=== PATIENT | female | born 1955 | race Caucasian/White ===

== ENCOUNTER 2016-10-12 12:05 | Emergency (ER) | payer OTHER ==
[2016-10-12 12:09] VITALS: TEMP 98.6; BMI 25.0
[2016-10-12] MEDS ORDERED: ONDANSETRON 4 MG/2 ML VIAL IVPUSH ONE (13:11)
[2016-10-12] MEDS ORDERED: SODIUM CHLORIDE 1,000 ML IV STA (13:11)
--- NOTE | 2016-10-12 13:11 | PDOC ---
History of Present Illness - General Chief Complaint: Pain, Acute Stated Complaint: ABD PAIN, NAUSEA Time Seen by Provider: 10/12/16 12:51 History Source: Patient Exam Limitations: No Limitations - History of Present Illness Initial Comments: 61 yo F history IBS, hypothyroid, depression presents with abd pain, N/V/D x4 days. She denies fever, dysuria. She has not had similar symptoms in the past. She states that the pain is diffuse, colicky, moderate. GI Dr. Mcclure Past History - Past Medical History Allergies/Adverse Reactions: Allergies Allergy/AdvReac Type Severity Reaction Status Date / Time No Known Allergies Allergy Verified 10/12/16 12:06 Home Medications: Ambulatory Orders Esomeprazole Magnesium [Nexium 24Hr] 40 mg PO DAILY 02/12/16 Mag Hydrox/Al Hydrox/Simeth [Mylanta Suspension -] 30 ml PO Q6H #1 bottle Escitalopram Oxalate [Lexapro -] 10 mg PO DAILY 10/12/16 Levothyroxine Sodium [Synthroid] 88 mcg PO 10/12/16 Ondansetron [Zofran Odt -] 4 mg SL TID PRN #21 od.tablet 10/12/16 GI Disorders: Yes Psychiatric Problems: Yes (DEPRESSION) Seizures: Yes Thyroid Disease: Yes - Psycho/Social/Smoking Cessation Hx Anxiety: No Suicidal Ideation: No Smoking History: Never smoked Have you smoked in the past 12 months: No Information on smoking cessation initiated: No Hx Alcohol Use: No Drug/Substance Use Hx: No Substance Use Type: None Review of Systems - Review of Systems Able to Perform ROS?: Yes Comments:: GENERAL/CONSTITUTIONAL: No fever or chills. No weakness. HEAD, EYES, EARS, NOSE AND THROAT: No change in vision. No ear pain or discharge. No sore throat. CARDIOVASCULAR: No chest pain or shortness of breath. RESPIRATORY: No cough, wheezing, or hemoptysis. GASTROINTESTINAL: +Nausea, vomiting, diarrhea. No constipation. GENITOURINARY: No dysuria, frequency, or change in urination. MUSCULOSKELETAL: No joint or muscle swelling or pain. No neck or back pain. SKIN: No rash NEUROLOGIC: No headache, vertigo, loss of consciousness, or change in strength/ sensation. ENDOCRINE: No increased thirst. No abnormal weight change. HEMATOLOGIC/LYMPHATIC: No anemia, easy bleeding, or history of blood clots. ALLERGIC/IMMUNOLOGIC: No hives or skin allergy. *Physical Exam - Vital Signs Last Vital Signs Temp Pulse Resp BP Pulse Ox 98.6 F 82 19 164/74 99 10/12/16 12:06 10/12/16 12:06 10/12/16 12:06 10/12/16 12:06 10/12/16 12:06 - Physical Exam Comments: GENERAL: Awake, alert, and fully oriented, in no acute distress HEAD: No signs of trauma EYES: PERRLA, EOMI, sclera anicteric, conjunctiva clear ENT: Auricles normal inspection, hearing grossly normal, nares patent, oropharynx clear without exudates. Moist mucosa NECK: Normal ROM, supple, no lymphadenopathy, JVD, or masses LUNGS: Breath sounds equal, clear to auscultation bilaterally. No wheezes, and no crackles HEART: Regular rate and rhythm, normal S1 and S2, no murmurs, rubs or gallops ABDOMEN: Soft, diffusely tender with guarding, normoactive bowel sounds. No rebound. No masses EXTREMITIES: Normal range of motion, no edema. No clubbing or cyanosis. No cords , erythema, or tenderness NEUROLOGICAL: Cranial nerves II through XII grossly intact. Normal speech, normal gait SKIN: Warm, Dry, normal turgor, no rashes or lesions noted. ED Treatment Course - LABORATORY CBC & Chemistry Diagram: 10/12/16 14:00 10/12/16 14:00 Medical Decision Making - Medical Decision Making Labs and UA reviewed, no acute findings. CT a/p obtained to r/o poss colitis vs diverticulitis, as patient was diffusely tender with symptoms for past 5 days. No acute findings. Stable for DC home with outpatient GI f/u. *DC/Admit/Observation/Transfer Diagnosis at time of Disposition: Nausea vomiting and diarrhea - Discharge Dispostion Disposition: HOME Condition at time of disposition: Stable Admit: No - Prescriptions Prescriptions: Ondansetron [Zofran Odt -] 4 mg SL TID PRN #21 od.tablet PRN Reason: Nausea And/Or Vomiting - Referrals Referrals: Mayte Beltre MD [Primary Care Provider] - - Patient Instructions Printed Discharge Instructions: DI for Diarrhea and Traveler's Diarrhea -- Adult, DI for Vomiting -- Adult Print Language: UKRAINIAN
[2016-10-12] MEDS ORDERED: ONDANSETRON 4 MG/2 ML VIAL ONE (14:04)
[2016-10-12 14:20] LABS: BASOPHIL 0.5 % (0-2.0); EOSINOPHIL 0.9 % (0-4.5); MCH 30.6 pg (25.7-33.7); MCHC 32.9 g/dl (32.0-36.0); MEAN CELL VOLUME 93.1 fl (80-96); MEAN PLT VOLUME 9.1 fl (7.5-11.1); NEUTROPHILS 62.5 % (42.8-82.8); PLATELET COUNT 238 K/MM3 (134-434); RDW 13.7 % (11.6-15.6)
[2016-10-12 14:23] LABS: URINE APPEARANCE CLOUDY; URINE BILIRUBIN NEGATIVE (NEGATIVE); URINE BLOOD NEGATIVE (NEGATIVE); URINE COLOR LTYELLOW; URINE GLUCOSE (UA) NEGATIVE (NEGATIVE); URINE KETONE NEGATIVE (NEGATIVE); URINE NITRITE NEGATIVE (NEGATIVE); URINE PROTEIN NEGATIVE (NEGATIVE); URINE UROBILINOGEN NEGATIVE E.U./dl (0.2-1.0)
[2016-10-12 14:28] LABS: URINE LEUK ESTERASE TRACE (NEGATIVE)
[2016-10-12 14:33] LABS: URINE WBC <1 /hpf (3-5)
[2016-10-12 14:38] LABS: ALBUMIN 3.8 g/dl (3.4-5.0); ALK PHOS 74 U/L (45-117); ANION GAP 6 (8-16); BILIRUBIN,TOTAL 0.3 mg/dL (0.2-1.0); CO2 32 mmol/L (21-32); COCKROFT - GAULT 90.4655; CREATININE 0.7 mg/dL (0.55-1.02); GLUCOSE,RANDOM 97 mg/dL (74-106); SGOT/AST 27 U/L (15-37); SGPT/ALT 37 U/L (12-78); TOT PROT 7.3 g/dl (6.4-8.2)
[2016-10-12 17:29] VITALS: BP 133/72; PULSE 77
== END 2016-10-12 17:29 | disposition home or self-care (01) ==
LOC: JER 12:05
PROC: 3E033GC Introduction of Other Therapeutic Substance into Peripheral Vein, Percutaneous Approach (ICD-10-PCS; principal; 2016-10-12)
DX: R11.2 Nausea with vomiting, unspecified (principal); R19.7 Diarrhea, unspecified; K58.8 Other irritable bowel syndrome; E03.9 Hypothyroidism, unspecified; F32.9 Major depressive disorder, single episode, unspecified; G40.909 Epilepsy, unspecified, not intractable, without status epilepticus
CPT/HCPCS: 36415; 74177-TC; 80053; 81003; 81015; 83690; 85025; 96374; 99283-25; Q9967

== ENCOUNTER 2018-03-06 09:01 | Day surgery (SDC) | payer OTHER ==
[2018-02-26 18:07] VITALS: BMI 26.4
[2018-03-06] MEDS ORDERED: MIDAZOLAM HCL 2 MG/2 ML SINGLE DOSE VIAL ONE (09:06)
[2018-03-06] MEDS ORDERED: PROPOFOL 20 ML ONE (09:06)
[2018-03-06] MEDS ORDERED: BUPIVACAINE HCL 0.25% 125 MG/50 ML VIAL ONE (10:05)
[2018-03-06] MEDS ORDERED: oxyCODONE HCL 5 MG TABLET PO PRN (11:06)
[2018-03-06] MEDS ORDERED: ONDANSETRON 4 MG/2 ML VIAL IVPUSH PRN (11:06)
[2018-03-06] MEDS ORDERED: LACTATED RINGERS SOLUTION 1,000 ML IV SCH (11:15)
[2018-03-06] MEDS ORDERED: oxyCODONE HCL 5 MG TABLET ONE ×2 (12:09→12:42)
--- NOTE | 2018-03-06 12:28 | OP ---
DATE OF OPERATION: 03/06/2018 PREOPERATIVE DIAGNOSIS: Left knee medial meniscal tear. POSTOPERATIVE DIAGNOSIS: Left knee medial meniscal tear. PROCEDURE: Left knee arthroscopy with partial medial meniscectomy. SURGEON: Ab Hendrickson MD ANESTHESIA: General. POSTOPERATIVE CONDITION: Stable. COMPLICATIONS: None. INDICATIONS: This is a pleasant 63-year-old female who suffered an injury to the left knee. She was found to have a medial meniscal tear. Treatment options including nonoperative versus operative management were reviewed. Operative risks were reviewed in detail including bleeding, infection, neurovascular injury, need for further surgery, postoperative pain and stiffness, and progression of osteoarthritis. We discussed medical risks such as heart attack, stroke, DVT, PE, and . I discussed the use of perioperative antibiotic and DVT prophylaxis. The drier feeder phone was used ensure that patient understood the discussion. Patient elected to proceed. DESCRIPTION OF PROCEDURE: The patient was brought to the operating room. Her left lower extremity was prepped and draped in the usual sterile fashion. A preoperative dose of antibiotics was given, and the usual time-out procedure was performed. At this point, the portal sites were marked out. The lateral portal was then established, and the arthroscope was passed into the knee. Examination of the patellofemoral joint demonstrated inferior degenerative change. The patella had a very flat shape to it. The arthroscope was now passed into the notch. ACL and PCL were visualized to be intact. The arthroscope was passed medially. The medial portal was established under spinal needle localization. Complex tear was noted at the body and extended into the posterior horn of the medial meniscus. Mild degenerative changes were noted on the articular surface. Utilizing combination of meniscal biters and a shaver, this was debrided down to a stable base. The lateral compartment was inspected demonstrating no meniscal tears, no articular lesions. The probe was used to ensure the meniscus was stable. At this point, the excess fluid was withdrawn from the joint. The portals were sutured using 3-0 nylon. Portals were injected using 0.25% Marcaine. Sterile dressings were placed. The patient was extubated and transferred to the recovery room in stable condition. Cynthia [id number]
[2018-03-06 12:48] VITALS: TEMP 97.9
[2018-03-06 14:54] VITALS: BP 130/68; PULSE 70
== END 2018-03-06 14:45 | disposition home or self-care (01) ==
LOC: FASU 09:01
PROVIDERS: ATTEND Orthopaedic Surgery Sports Medicine
PROC: 0SBD4ZZ Excision of Left Knee Joint, Percutaneous Endoscopic Approach (ICD-10-PCS; principal; 2018-03-06 10:38)
DX: S83.242A Other tear of medial meniscus, current injury, left knee, initial encounter (principal); X58.XXXA Exposure to other specified factors, initial encounter; Y93.89 Activity, other specified; Y92.89 Other specified places as the place of occurrence of the external cause

== ENCOUNTER 2020-03-11 08:08 | Emergency (ER) | payer OTHER ==
[2020-03-11 08:15] VITALS: BMI 23.6
--- NOTE | 2020-03-11 08:20 | PDOC ---
History of Present Illness - General Chief Complaint: Pain Stated Complaint: ABD PAIN Time Seen by Provider: 03/11/20 08:20 - History of Present Illness Initial Comments: 65 YOF h/o hypothyroidism, HTN presents for abdominal pain and nausea of 1 month duration. Reports that she has been feeling weak, tired, persistently nauseas, and pain worse with eating for one month. Patient does report some radiation to the back. She also mentions some decreased urinary frequency over the past month but had UA at PCP ~1 week prior which was normal. She also mentions two bouts of vomiting and some intermittent constipation. She had a recent COVID test which was negative. Denies CP, SOB, fever or chills. Past History - Medical History Allergies/Adverse Reactions: Allergies Allergy/AdvReac Type Severity Reaction Status Date / Time No Known Allergies Allergy Verified 03/11/20 08:15 Home Medications: Ambulatory Orders Aspirin [Adult Aspirin] 81 mg PO DAILY 12/17/17 Chlorthalidone [Hygroton -] 25 mg PO DAILY 12/17/17 Metoprolol Succinate [Toprol Xl] 25 mg PO DAILY 12/17/17 Cholecalciferol (Vitamin D3) [Vitamin D3] 1,000 iu PO DAILY 02/26/18 Cyanocobalamin [Vitamin B12 -] 1,000 mcg PO DAILY 02/26/18 Cimetidine [Tagamet Hb] 400 mg PO DAILY 14 Days #28 tablet 03/11/20 Gabapentin 100 mg PO TID 03/11/20 Levothyroxine [Synthroid -] 75 mcg PO DAILY 03/11/20 Lipase/Protease/Amylase [Zenpep Dr 10,000 Units Capsule] 1 each PO DAILY 03/11/20 Oxybutynin Chloride [Ditropan -] 5 mg PO DAILY 03/11/20 Pantoprazole Sodium 40 mg PO DAILY 03/11/20 Anemia: No Asthma: No Cancer: No Cardiac Disorders: No CVA: No COPD: No CHF: No Dementia: No Diabetes: Yes GI Disorders: Yes (GERD) Disorders: No HTN: Yes Hypercholesterolemia: Yes Liver Disease: No Psychiatric Problems: Yes (DEPRESSION) Seizures: No Thyroid Disease: Yes - Surgical History Abdominal Surgery: No Appendectomy: No Cardiac Surgery: No Cholecystectomy: No Lung Surgery: No Neurologic Surgery: No Orthopedic Surgery: No - Reproductive History Is Patient Now?: No - Psycho-Social/Smoking History Smoking History: Never smoked Have you smoked in the past 12 months: No Information on smoking cessation initiated: No - Substance Abuse Hx (Audit-C & DAST Scrn) How often the patient has a drink containing alcohol: Never Score: In Men: 4 or > Positive; In Women: 3 or > Positive: 0 Screen Result (Pos requires Nsg. Audit-10AR): Negative In the last yr the pt used illegal drug/Rx for NonMed reason: No Score: Yes response is considered Positive: 0 Screen Result (Positive result requires Nsg. DAST-10): Negative Review of Systems - Review of Systems Is the patient limited Azerbaijani proficient: Yes Constitutional: Yes: See HPI HEENTM: Yes: See HPI Respiratory: Yes: See HPI Cardiac (ROS): Yes: See HPI ABD/GI: Yes: See HPI : Yes: See HPI Musculoskeletal: Yes: See HPI Integumentary: Yes: See HPI Neurological: Yes: See HPI Endocrine: Yes: See HPI Hematologic/Lymphatic: Yes: See HPI *Physical Exam - Vital Signs Last Vital Signs Temp Pulse Resp BP Pulse Ox 98.5 F 61 17 148/73 100 03/11/20 08:12 03/11/20 08:12 03/11/20 08:12 03/11/20 08:12 03/11/20 08:12 - Physical Exam General Appearance: Yes: Nourished, Appropriately Dressed, Moderate Distress HEENT: positive: EOMI, KORINA, Normal ENT Inspection Neck: positive: Trachea midline, Normal Thyroid Respiratory/Chest: positive: Lungs Clear, Normal Breath Sounds Cardiovascular: positive: Regular Rhythm, Regular Rate, S1, S2 Gastrointestinal/Abdominal: positive: Normal Bowel Sounds, Tender, Flat, Soft, Tenderness Musculoskeletal: positive: Normal Inspection Extremity: positive: Normal Capillary Refill Integumentary: positive: Normal Color, Dry, Warm ED Treatment Course - LABORATORY CBC & Chemistry Diagram: 03/11/20 09:05 03/11/20 09:05 Medical Decision Making - Medical Decision Making 65 YOF h/o hypothyroidism, HTN w/abdominal pain and nausea for one month. - Vitals stable - epigastric tenderness on exam, negative murphys - labs wnl - US no acute changes, enlarged liver with fatty infiltrates - will d/c w/ follow up w/ lantin and script for tegement Discharge - Discharge Information Problems reviewed: Yes Clinical Impression/Diagnosis: Epigastric abdominal pain Condition: Good Disposition: HOME - Admission No - Additional Discharge Information Prescriptions: Cimetidine [Tagamet Hb] 400 mg PO DAILY 14 Days #28 tablet - Follow up/Referral Referrals: Hector Mcclure MD [Staff Physician] - - Patient Discharge Instructions Patient Printed Discharge Instructions: DI for Abdominal Pain-Adult, Cimetidine Additional Instructions: Lo vieron en la edna de emergencias por dolor abdominal y nuseas. Recibi anlisis de carrie y ultrasonido, los cuales fueron normales. Se encontr que estaba mdicamente estable y seguro para regresar a casa. Monique un seguimiento con cox mdico gastrointestinal, el doctor Ren, con respecto a cox visita al departamento de emergencias. Tambin por favor recoja a Tagamet en la farmacia. No kulwant caf, alcohol ni coma alimentos picantes. Regrese a la edna de emergencias si siente dolor en el pecho, dificultad para respirar, fiebre, esc alofros, carrei en las heces, vmito u orina. You were seen in the emergency room for abdominal pain and nausea. You received blood work and ultrasound, both of which were normal. You were found to be medically stable and safe to return home. Please follow up with your GI doctor, doctor Mcclure regarding your visit to the emergency department. 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 Do not drink coffee, alcohol, or eat spicy foods. Please return to the ER if you experience chest pain, shortness of breath, fever, chills, blood in your stool,vomit, or urine. Print Language: CHADIAN - Post Discharge Activity
[2020-03-11] MEDS ORDERED: METOCLOPRAMIDE HCL INJECTION 10 MG/2 ML VIAL IVPUSH ONE (09:15)
--- NOTE | 2020-03-11 09:18 | PDOC ---
Attending Attestation - Resident Resident Name: Darian Riojas - ED Attending Attestation I have performed the following: I have examined & evaluated the patient, The case was reviewed & discussed with the resident, I agree w/resident's findings & plan, Exceptions are as noted - HPI HPI: 03/11/20 09:17 65y F hx of htn, hypothyrodism, dm, presents with epigastric discomfort for the past month, had seen GI and received meds without significant improvement. The patient states that the pain seems to be worse in the morning, is epigastric occasionally radiates throughout her belly, associated with nausea. The patient denies any worsening with exertion, fever, chills, blood per rectum, melena, dysuria, chest pain, shortness of breath, focal numbness, tingling, weakness. Patient notes that the pain does seem worse after she eats. She was given pantoprazole by her GI doctor without significant relief. - Physicial Exam PE: 03/11/20 09:50 GENERAL: The patient is awake, alert, and fully oriented, Nontoxic - in no acute distress. HEAD: Normocephalic, atraumatic. EYES: extraocular movements intact, sclera anicteric, conjunctiva clear. ENT: Normal voice, Moist mucous membranes. NECK: Normal range of motion, supple LUNGS: Breath sounds equal, clear to auscultation bilaterally. No wheezes, no rhonchi, no rales. HEART: Regular rate and rhythm, normal S1 and S2 without murmur, rub or gallop. ABDOMEN: Soft, mild epigastric tenderness, negative McBurney's, negative Link's, No guarding, no rebound. No CVA tenderness EXTREMITIES: Normal range of motion, no edema. NEUROLOGICAL: No facial assymetry, Normal speech, moving all 4 extremities spontaneously symmetrically PSYCH: Normal mood, normal affect. SKIN: Warm, Dry, normal turgor, - Medical Decision Making 03/11/20 09:52 suspect gastritis, will obtain labs to eval for anemia, metabolic derangement, pancreatitis ekg to screen for acs gi coctail will obtain RUQ to r.o stones will reasess 03/11/20 13:16 pt feeling improved will dc with tegamet w GI fu return precautions were discsused Heart Score/ECG Review - ECG Impressions Comment:: 03/11/20 09:52 Twelve-lead EKG was performed and reviewed by me. There is normal sinus rhythm with rate of 55 The axis is normal. The intervals are normal. There is normal R wave progression There are no ST or T wave abnormalities. Impressin: sinus bradycardia Discharge - Discharge Information Problems reviewed: Yes Clinical Impression/Diagnosis: Epigastric abdominal pain Condition: Good Disposition: HOME - Additional Discharge Information Prescriptions: Cimetidine [Tagamet Hb] 400 mg PO DAILY 14 Days #28 tablet - Follow up/Referral Referrals: Hector Mcclure MD [Staff Physician] - - Patient Discharge Instructions Patient Printed Discharge Instructions: DI for Abdominal Pain-Adult, Cimetidine Additional Instructions: Lo vieron en la edna de emergencias por dolor abdominal y nuseas. Recibi anlisis de carrie y ultrasonido, los cuales fueron normales. Se encontr que estaba mdicamente estable y seguro para regresar a casa. Monique un seguimiento con cox mdico gastrointestinal, el doctor Mcclure, con respecto a cox visita al departamento de emergencias. Tambin por favor recoja a Tagamet en la farmacia. No kulwant caf, alcohol ni coma alimentos picantes. Regrese a la edna de emergencias si siente dolor en el pecho, dificultad para respirar, fiebre, escalofros, carrie en las heces, vmito u orina. You were seen in the emergency room for abdominal pain and nausea. You received blood work and ultrasound, both of which were normal. You were found to be medically stable and safe to return home. Please follow up with your GI doctor, doctor Mcclure regarding your visit to the emergency department. 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 Do not drink coffee, alcohol, or eat spicy foods. Please return to the ER if you experience chest pain, shortness of breath, fever, chills, blood in your stool,vomit, or urine. Print Language: BURUNDIAN - Post Discharge Activity
[2020-03-11] MEDS ORDERED: METOCLOPRAMIDE HCL INJECTION 10 MG/2 ML VIAL ONE (09:27)
[2020-03-11 09:55] LABS: BASO % 0.7 % (0-2.0); EOS % 1.1 % (0-4.5); HEMATOCRIT 39.7 % (32.4-45.2); LYMPH % 25.8 % (8-40); MCH 30.6 pg (25.7-33.7); MCHC 32.9 g/dl (32.0-36.0); MEAN PLT VOLUME 10.1 fl (7.5-11.1); NEUT % 63.4 % (42.8-82.8); PLATELET COUNT 272 K/MM3 (134-434); RBC 4.27 M/mm3 (3.60-5.2); RDW 13.1 % (11.6-15.6); WHITE BLOOD COUNT 6.6 K/mm3 (4.0-10.0)
[2020-03-11 10:23] LABS: ALK PHOS 61 U/L (45-117); ANION GAP 6 MMOL/L (8-16); BILIRUBIN,TOTAL 0.5 mg/dL (0.2-1); BLOOD UREA NITROGEN 14.5 mg/dL (7-18); CALCIUM 9.2 mg/dL (8.5-10.1); CHLORIDE 101 mmol/L (98-107); CO2 32 mmol/L (21-32); CREATININE 0.8 mg/dL (0.55-1.3); GLUCOSE,RANDOM 129 mg/dL (74-106); LIPASE 68 U/L (73-393); POTASSIUM 3.5 mmol/L (3.5-5.1); SGOT/AST 25 U/L (15-37); SGPT/ALT 35 U/L (13-61); SODIUM 139 mmol/L (136-145); TOT PROT 7.7 g/dl (6.4-8.2)
--- NOTE | 2020-03-11 11:16 | EKG ---
Test Reason : Blood Pressure : / mmHG Vent. Rate : 055 BPM Atrial Rate : 055 BPM P-R Int : 152 ms QRS Dur : 086 ms QT Int : 450 ms P-R-T Axes : 071 030 034 degrees QTc Int : 430 ms SINUS BRADYCARDIA NONSPECIFIC ST ABNORMALITY WHEN COMPARED WITH ECG OF 12-FEB-2016 10:16, NO SIGNIFICANT CHANGE WAS FOUND Confirmed by SHELDON PORTILLO MD ([id number]) on 03/11/2020 11:16:25 AM Referred By: Confirmed By:SHELDON PORTILLO MD
[2020-03-11] MEDS ORDERED: MAG HYDROX/AL HYDROX/SIMETH -MYLANTA- ORAL SUSPENSION PO ONE (11:39)
[2020-03-11] MEDS ORDERED: FAMOTIDINE 20 MG/50 ML IVPB 20 MG in PREMIX 50 IVPB ONE (11:39)
[2020-03-11] MEDS ORDERED: MAG HYDROX/AL HYDROX/SIMETH 30 ML UNIT-DOSE CUP ONE (12:09)
[2020-03-11] MEDS ORDERED: FAMOTIDINE 20 MG/50 ML IVPB 20 MG/50 ML MG IVPB ONE (12:09)
[2020-03-11 13:44] VITALS: BP 110/58; PULSE 58; TEMP 97.9
== END 2020-03-11 14:01 | disposition home or self-care (01) ==
LOC: JER 08:08
PROC: 3E033NZ Introduction of Analgesics, Hypnotics, Sedatives into Peripheral Vein, Percutaneous Approach (ICD-10-PCS; principal; 2020-03-11)
PROC: 3E033GC Introduction of Other Therapeutic Substance into Peripheral Vein, Percutaneous Approach (ICD-10-PCS; 2020-03-11)
DX: R10.13 Epigastric pain (principal)
CPT/HCPCS: 36415; 76705-TC; 80053; 83690; 84484; 85025; 93005; 93010; 99285-25

== ENCOUNTER → 2021-11-22 | Day surgery (SDC) | payer OTHER | END | disposition home or self-care (01) | LOC: JRADUS-SUR 08:44 | PROVIDERS: ATTEND Family Medicine | PROC: 0H9T3ZX Drainage of Right Breast, Percutaneous Approach, Diagnostic (ICD-10-PCS; principal; 2021-11-22) | DX: N63.31 Unspecified lump in axillary tail of the right breast (principal); Z53.8 Procedure and treatment not carried out for other reasons | CPT/HCPCS: 19083; 76604 ==

== ENCOUNTER 2022-03-06 17:01 | Emergency (ER) | payer MEDICARE, OTHER ==
[2022-03-06 17:20] VITALS: BP 147/47; PULSE 75; RESP 18; TEMP 98.1; BMI 25.7
[2022-03-06] MEDS ORDERED: ACETAMINOPHEN 1000 MG/100 ML BAG IVPB ONE (18:53)
[2022-03-06] MEDS ORDERED: SODIUM CHLORIDE 0.9% 500 ML INFUS.BAG IV ONE (18:53)
[2022-03-06] MEDS ORDERED: ACETAMINOPHEN INJECTION 100 ML IVPB ONE (19:04)
[2022-03-06 19:50] LABS: EPI CELLS 9 /uL (0-25.1); HYALINE CASTS 0 /uL (0-3.1); PH,URINE 5.5 (5.0-8.0); URINE APPEARANCE CLEAR; URINE BACTERIA 222 /uL (0-1359); URINE BILIRUBIN NEGATIVE (NEGATIVE); URINE COLOR YELLOW; URINE GLUCOSE (UA) NEGATIVE (NEGATIVE); URINE KETONE NEGATIVE (NEGATIVE); URINE LEUK ESTERASE 2+ (NEGATIVE); URINE NITRITE NEGATIVE (NEGATIVE); URINE PROTEIN NEGATIVE (NEGATIVE); URINE RBC 2 /uL (0-23.9); URINE UROBILINOGEN 0.2 mg/dL (0.2-1.0); URINE WBC 62 /uL (0-25.8)
[2022-03-06 19:59] LABS: BASO % 0.8 % (0-2.0); EOS % 0.9 % (0-4.5); HEMATOCRIT 38.6 % (32.4-45.2); HEMOGLOBIN 12.9 GM/dL (10.7-15.3); LYMPH % 32.8 % (8-40); MCH 31.7 pg (25.7-33.7); MCHC 33.4 g/dl (32.0-36.0); MEAN CELL VOLUME 94.7 fl (80-96); MEAN PLT VOLUME 9.5 fl (7.5-11.1); MONO % 8.6 % (3.8-10.2); NEUT % 56.9 % (42.8-82.8); PLATELET COUNT 269 10^3/uL (134-434); RBC 4.08 M/mm3 (3.60-5.2); RDW 13.6 % (11.6-15.6); WHITE BLOOD COUNT 7.4 K/mm3 (4.0-10.0)
[2022-03-06 20:04] LABS: INR 1.06 (0.83-1.09); PROTHROMBIN TIME (PATIENT) 12.2 SEC (9.7-13.0)
[2022-03-06 20:07] LABS: ACTIVATED PTT 27.1 SECONDS (25.2-36.5)
[2022-03-06 20:19] LABS: CALCIUM 9.6 mg/dL (8.5-10.1)
[2022-03-06 20:20] LABS: ALBUMIN 3.7 g/dl (3.4-5.0); BLOOD UREA NITROGEN 16.2 mg/dL (7-18); MAGNESIUM 2.2 mg/dL (1.8-2.4)
[2022-03-06 20:23] LABS: CREATININE 0.7 mg/dL (0.55-1.3)
[2022-03-06 20:24] LABS: BILIRUBIN,TOTAL 0.3 mg/dL (0.2-1)
[2022-03-06 20:25] LABS: TOT PROT 7.1 g/dl (6.4-8.2)
== END 2022-03-06 22:03 | disposition home or self-care (01) ==
LOC: JER 17:01
PROC: 3E033GC Introduction of Other Therapeutic Substance into Peripheral Vein, Percutaneous Approach (ICD-10-PCS; principal; 2022-03-06)
DX: K42.9 Umbilical hernia without obstruction or gangrene (principal)
CPT/HCPCS: 36415; 74177-TC; 80053; 81003; 82962; 83735; 85025; 85610; 85730; 86850; 86900; 86901; 87077; 87086; 93005; 93010; 96374; 99285-25; Q9967

== ENCOUNTER 2023-03-07 05:17 | Day surgery (SDC) | payer MEDICARE, OTHER ==
[2023-03-06 11:59] VITALS: BMI 24.7
[2023-03-07 12:30] VITALS: TEMP 98
[2023-03-07 12:56] VITALS: PULSE 64
[2023-03-07 13:37] VITALS: BP 135/64; RESP 16
== END 2023-03-07 13:50 | disposition home or self-care (01) ==
LOC: JASU-ENDO 05:17
PROVIDERS: ATTEND Internal Medicine Gastroenterology
PROC: 0DB68ZX Excision of Stomach, Via Natural or Artificial Opening Endoscopic, Diagnostic (ICD-10-PCS; 2023-03-07)
PROC: 0DJD8ZZ Inspection of Lower Intestinal Tract, Via Natural or Artificial Opening Endoscopic (ICD-10-PCS; principal; 2023-03-07 12:00)
DX: Z12.11 Encounter for screening for malignant neoplasm of colon (principal); K29.50 Unspecified chronic gastritis without bleeding; K64.8 Other hemorrhoids; K59.00 Constipation, unspecified; R10.84 Generalized abdominal pain; E11.9 Type 2 diabetes mellitus without complications; Z79.84 Long term (current) use of oral hypoglycemic drugs
CPT/HCPCS: 43239; G0121; 82962; 88305-TC; 88342-TC

== ENCOUNTER 2023-06-26 18:51 | Emergency (ER) | payer MEDICARE, OTHER ==
[2023-06-26 18:57] VITALS: TEMP 98.4; BMI 24.7
[2023-06-26] MEDS ORDERED: FAMOTIDINE 20 MG/50 ML IVPB 20 MG/50 ML MG IVPB ONE ×2 (21:22→21:50)
[2023-06-26] MEDS ORDERED: ONDANSETRON 4 MG/2 ML VIAL IVPUSH ONE (21:22)
[2023-06-26] MEDS ORDERED: ACETAMINOPHEN 1000 MG/100 ML BAG IVPB ONE (21:22)
[2023-06-26] MEDS ORDERED: SODIUM CHLORIDE 0.9% 500 ML INFUS.BAG IV ONE (21:22)
[2023-06-26] MEDS ORDERED: MAG HYDROX/AL HYDROX/SIMETH 30 ML UNIT-DOSE CUP PO ONE (21:23)
[2023-06-26] MEDS ORDERED: ACETAMINOPHEN INJECTION 100 ML IVPB ONE (21:50)
[2023-06-26] MEDS ORDERED: MAG HYDROX/AL HYDROX/SIMETH 30 ML UNIT-DOSE CUP ONE (21:50)
[2023-06-26] MEDS ORDERED: ONDANSETRON 4 MG/2 ML VIAL ONE (21:50)
[2023-06-26 22:14] LABS: INR 1.05 (0.83-1.09); PROTHROMBIN TIME (PATIENT) 12.2 SEC (9.7-13.0)
[2023-06-26 22:20] LABS: BASO % 0.7 % (0-2.0); HEMATOCRIT 37.3 % (32.4-45.2); HEMOGLOBIN 12.4 GM/dL (10.7-15.3); LYMPH % 25.1 % (8-40); MCH 31.3 pg (25.7-33.7); MCHC 33.2 g/dl (32.0-36.0); MEAN CELL VOLUME 94.3 fl (80-96); MEAN PLT VOLUME 9.4 fl (7.5-11.1); NEUT % 61.2 % (42.8-82.8); PLATELET COUNT 199 10^3/uL (134-434); RBC 3.96 M/mm3 (3.60-5.2); RDW 13.6 % (11.6-15.6)
[2023-06-26 22:28] LABS: POTASSIUM 3.8 mmol/L (3.5-5.1)
[2023-06-26 22:32] LABS: ALBUMIN 3.4 g/dl (3.4-5.0); BLOOD UREA NITROGEN 11.6 mg/dL (7-18)
[2023-06-26 22:34] LABS: CREATININE 0.7 mg/dL (0.55-1.3)
[2023-06-26 22:37] LABS: BILIRUBIN,TOTAL 0.4 mg/dL (0.2-1); TOT PROT 6.8 g/dl (6.4-8.2)
[2023-06-26 23:05] LABS: PH,URINE 5.5 (5.0-8.0); URINE APPEARANCE CLEAR; URINE BILIRUBIN NEGATIVE (NEGATIVE); URINE COLOR YELLOW; URINE GLUCOSE (UA) 3+ (NEGATIVE); URINE KETONE 1+ (NEGATIVE); URINE LEUK ESTERASE NEGATIVE (NEGATIVE); URINE NITRITE NEGATIVE (NEGATIVE); URINE PROTEIN NEGATIVE (NEGATIVE); URINE UROBILINOGEN 0.2 mg/dL (0.2-1.0)
[2023-06-27 01:54] VITALS: BP 123/65; PULSE 84; RESP 17
== END 2023-06-27 04:27 | disposition left against medical advice (07) ==
LOC: JER 18:51
PROC: 3E033GC Introduction of Other Therapeutic Substance into Peripheral Vein, Percutaneous Approach (ICD-10-PCS; principal; 2023-06-26)
PROC: 3E033NZ Introduction of Analgesics, Hypnotics, Sedatives into Peripheral Vein, Percutaneous Approach (ICD-10-PCS; 2023-06-26)
PROC: 3E033GC Introduction of Other Therapeutic Substance into Peripheral Vein, Percutaneous Approach (ICD-10-PCS; 2023-06-26)
DX: R10.11 Right upper quadrant pain (principal); R11.2 Nausea with vomiting, unspecified; R10.12 Left upper quadrant pain
CPT/HCPCS: 36415; 71046-TC-FY; 74177-TC; 80053; 81003; 83605; 83690; 84484; 85025; 85610; 85730; 86850; 86900; 86901; 87086; 93005; 93010; 99285-25

== ENCOUNTER 2024-09-02 10:53 | Day surgery (SDC) | payer OTHER ==
[2024-08-28 15:44] VITALS: BMI 26.6
[2024-09-02] MEDS ORDERED: CYCLOPENTOLATE 2% OPHTH SOLN 2 ML BOTTLE ONE (11:09)
[2024-09-02] MEDS ORDERED: TROPICAMIDE 1% 3 ML EYE DROPS ONE (11:10)
[2024-09-02] MEDS ORDERED: PHENYLEPHRINE 2.5% OPTHALMIC DROP 2ML BOTTLE ONE (11:10)
[2024-09-02] MEDS ORDERED: CIPROFLOXACIN 0.3% EYE DROPS 5 ML BOTTLE ONE (11:10)
[2024-09-02] MEDS ORDERED: EPINEPHrine 1:1000 P/F - 1 MG/ML AMP ONE (12:49)
[2024-09-02] MEDS ORDERED: NEO/POLYMYX B SULF/DEXAMETH OPHTHALMIC 5ML BOTTLE ONE (12:49)
[2024-09-02] MEDS ORDERED: LIDOCAINE 1% P/F 10 MG/ML VIAL ONE (12:49)
[2024-09-02] MEDS ORDERED: BSS (NA/CA/MG/K) BALANCED SALT SOLUTION OPHTH SOLN 15 ML BOTTLE ONE (12:49)
[2024-09-02] MEDS ORDERED: CARBACHOL 0.01% INTRA-OCULAR 1.5 ML VIAL ONE (12:49)
[2024-09-02] MEDS ORDERED: TETRACAINE 0.5% OPHTH SOLN 2 ML BOTTLE ONE (12:49)
[2024-09-02] MEDS ORDERED: MIDAZOLAM HCL 2 MG/2 ML SINGLE DOSE VIAL ONE (13:11)
[2024-09-02] MEDS ORDERED: ONDANSETRON 4 MG/2 ML VIAL ONE (13:14)
[2024-09-02 13:34] VITALS: RESP 18; TEMP 97.4
[2024-09-02 14:14] VITALS: BP 150/60; PULSE 78
== END 2024-09-02 14:00 | disposition home or self-care (01) ==
LOC: FASU 10:53
PROVIDERS: ATTEND Ophthalmology
PROC: 08RK3JZ Replacement of Left Lens with Synthetic Substitute, Percutaneous Approach (ICD-10-PCS; principal; 2024-09-02 13:15)
DX: H26.8 Other specified cataract (principal)
CPT/HCPCS: 66984; V2632; 82962